=== PATIENT | female | born 1985 | race Caucasian/White ===

== ENCOUNTER 2018-01-06 23:45 | Emergency (ER) | payer MEDICAID, OTHER ==
[~2018-01-06] VITALS: Ht 154.9 cm; Wt 90.7 kg
[~2018-01-06 23:45] MED LIST: HYDR25TA4 PO; LISI40TA4 PO; NOR10 PO
[2018-01-06 23:53] VITALS: BP_SYST 184
[2018-01-07] MEDS ORDERED: KETOROLAC TROMETHAMINE 60 MG/2 ML VIAL IM ONE
[2018-01-07 00:55] VITALS: BP_SYST 179
[2018-01-07 00:55] LABS: BILIRUBIN,URINE NEGATIVE (NEGATIVE); BLOOD, URINE 3+ (NEGATIVE); CLARITY/URINE HAZY (CLEAR); COLOR,URINE YELLOW (YELLOW); GLUCOSE,URINE NEGATIVE (NEGATIVE); KETONES,URINE TRACE (NEGATIVE); LEUKOCYTE ESTERASE ,URINE NEGATIVE (NEGATIVE); NITRITE, URINE NEGATIVE (NEGATIVE); PH,URINE 5.5 (5.0-8.0); PROTEIN URINE 1+ (NEGATIVE); UROBILINOGEN,URINE 0.2 (0.2-1.0)
[2018-01-07 01:03] LABS: BACTERIA,URINE RARE /HPF (None Seen); RBC,URINE >100 /HPF (0-3)
== END 2018-01-07 00:55 | disposition home or self-care (01) ==
LOC: SED 23:45
DX: N20.0 Calculus of kidney (principal); I10 Essential (primary) hypertension; Z87.442 Personal history of urinary calculi
CPT/HCPCS: 81000; 81025; 96372; 99283; J1885

== ENCOUNTER 2023-06-04 16:39 | Emergency (ER) | payer BC ==
[~2023-06-04] VITALS: Ht 157.5 cm; Wt 81.6 kg
[~2023-06-04 16:39] MED LIST changes: +IBUP-1969 PO; +LISI40TA13 PO; -LISI40TA4 PO; +ONDA-8 TL; +OXYC-128 PO
[2023-06-04 16:45] VITALS: BP_SYST 195; PULSE 103; RESP 18; TEMP 98.3; O2SAT 98
--- NOTE | 2023-06-04 17:10 | NUR ---
Pt brought by self, A&Ox4, pt presents to ER with middle back pain, increasing with inspiration, O2 98%, skin pink and warm, cap refill <3, VSS
--- NOTE | 2023-06-04 17:51 | NUR ---
DR WEIR OUT TO TRIAGE ROOM FOR EVALUATION
[2023-06-04] MEDS ORDERED: KETOROLAC TROMETHAMINE 30 MG VIAL IVP ONE (18:00)
--- NOTE | 2023-06-04 18:00 | NUR ---
Patient to ER bed 07 to gown for evaluation. Side rails up. Report given to SELENA TOBIAS
[2023-06-04 18:23] LABS: BASOPHILS # (AUTO) 0.1 K/uL (0.0-0.2); BASOPHILS % (AUTO) 0.6 % (0.0-2.0); EOSINOPHILS # (AUTO) 0.2 K/uL (0.0-0.4); EOSINOPHILS % (AUTO) 1.2 % (0.0-4.0); HEMATOCRIT 35.4 % (36-48); HEMOGLOBIN 11.3 g/dL (12.0-16.0); LYMPHOCYTES # (AUTO) 1.7 K/uL (1.0-5.5); LYMPHOCYTES % (AUTO) 13.1 % (20.5-51.5); MEAN CORPUSCULAR HEMOGLOBIN 27 pg (27-31); MEAN CORPUSCULAR HGB CONC 32 % (32-36); MEAN CORPUSCULAR VOLUME 84 fL (79.0-98.0); MONOCYTES # (AUTO) 0.7 K/uL (0.0-1.0); MONOCYTES % (AUTO) 5.6 % (1.7-9.3); NEUTROPHILS # (AUTO) 10.3 K/uL (1.8-7.7); NEUTROPHILS % (AUTO) 79.5 % (40.0-70.0); PLATELET COUNT (AUTO) 339 K/uL (130-430); RED BLOOD CELL COUNT(AUTO) 4.21 MIL/uL (4.2-6.2); RED CELL DISTRIBUTION WIDTH 16.7 % (9.0-15.0); WHITE BLOOD COUNT (AUTO) 12.9 K/uL (4.8-10.8)
[2023-06-04 18:30] VITALS: TEMP 97.8
[2023-06-04 18:34] LABS: ANION GAP 9 (5-15); CALCIUM 8.6 mg/dL (8.4-11.0); CHLORIDE 102 mmol/L (98-107); CREATININE 0.78 mg/dL (0.55-1.30); GFR AFRICAN AMERICAN 106 mL/min (>90); GLUCOSE 95 mg/dL (74-106); UREA NITROGEN, BLOOD 14 mg/dL (8-21)
[2023-06-04 18:40] LABS: ALANINE AMINOTRANSFERASE 20 U/L (12-78); ALBUMIN 3.8 g/dL (3.4-4.8); ASPARTATE AMINOTRANSFERASE 10 U/L (10-37); TOTAL BILIRUBIN 0.5 mg/dL (0.0-1.0)
[2023-06-04] MEDS ORDERED: DIPHENHYDRAMINE INJ 50 MG/ML VIAL IVP ONE (19:15)
--- NOTE | 2023-06-04 19:20 | NUR ---
RECEIVED VERBAL REPORT FROM OUTGOING NURSE SELENA TOBIAS. RECEIVED PT AWAKE AND ALERT, NO S/S OF DISTRESS NOTED. CONTINUED SAFETY PRECAUTIONS.
--- NOTE | 2023-06-04 21:04 | NUR ---
DR. WEIR IN ROOM DISCUSSING RESULTS
[2023-06-04] MEDS ORDERED: DICL75TA5 PO (21:16)
[2023-06-04 21:25] VITALS: BP_SYST 161; PULSE 80; RESP 18; O2SAT 97
--- NOTE | 2023-06-04 21:25 | NUR ---
Patient given written and verbal discharge instructions and verbalizes understanding. ER DR WEIR discussed with patient the results and treatment provided. Patient in stable condition. ID arm band removed. IV catheter removed intact and dressing applied, no active bleeding. Rx of VOLTAREN given. Patient educated on pain management and to follow up with PMD. Pain Scale 2/10. Opportunity for questions provided and answered. Medication side effect fact sheet provided.
== END 2023-06-04 21:25 | disposition home or self-care (01) ==
LOC: SED 16:39
DX: R09.1 Pleurisy (principal); R07.81 Pleurodynia; M54.6 Pain in thoracic spine; R06.02 Shortness of breath; I10 Essential (primary) hypertension; Z79.899 Other long term (current) drug therapy; Z20.822 Contact with and (suspected) exposure to COVID-19
CPT/HCPCS: 99285; 96374; 71275; 71045; 96375; 87426; 80053; 84703; 83880; 85025; 85379; 84484; 36415; 93005; 87804 ×2; 76376; J1200; J1885; Q9967

== ENCOUNTER 2023-12-09 14:27 | Emergency (ER) | payer BC ==
[~2023-12-09] VITALS: Ht 160 cm; Wt 90.7 kg
[~2023-12-09 14:27] MED LIST changes: +DICL75TA5 PO
[2023-12-09 14:41] VITALS: BP_SYST 207; PULSE 97; RESP 18; TEMP 97.3; O2SAT 99
[2023-12-09 15:19] LABS: BILIRUBIN,URINE NEGATIVE (NEGATIVE); BLOOD, URINE NEGATIVE (NEGATIVE); CLARITY/URINE CLEAR (CLEAR); COLOR,URINE YELLOW (YELLOW); GLUCOSE,URINE NEGATIVE (NEGATIVE); KETONES,URINE NEGATIVE (NEGATIVE); LEUKOCYTE ESTERASE ,URINE NEGATIVE (NEGATIVE); NITRITE, URINE NEGATIVE (NEGATIVE); PROTEIN URINE NEGATIVE (NEGATIVE); UROBILINOGEN,URINE 0.2 (0.2-1.0)
[2023-12-09 15:31] LABS: BASOPHILS # (AUTO) 0.1 K/uL (0.0-0.2); BASOPHILS % (AUTO) 0.8 % (0.0-2.0); EOSINOPHILS # (AUTO) 0.1 K/uL (0.0-0.4); EOSINOPHILS % (AUTO) 1.4 % (0.0-4.0); HEMATOCRIT 34.7 % (36-48); HEMOGLOBIN 11.5 g/dL (12.0-16.0); MEAN CORPUSCULAR HEMOGLOBIN 26 pg (27-31); MEAN CORPUSCULAR HGB CONC 33 % (32-36); MEAN CORPUSCULAR VOLUME 80 fL (79.0-98.0); MONOCYTES # (AUTO) 0.6 K/uL (0.0-1.0); MONOCYTES % (AUTO) 5.2 % (1.7-9.3); NEUTROPHILS # (AUTO) 7.9 K/uL (1.8-7.7); NEUTROPHILS % (AUTO) 73.6 % (40.0-70.0); PLATELET COUNT (AUTO) 451 K/uL (130-430); RED BLOOD CELL COUNT(AUTO) 4.35 MIL/uL (4.2-6.2); RED CELL DISTRIBUTION WIDTH 15.9 % (9.0-15.0); WHITE BLOOD COUNT (AUTO) 10.7 K/uL (4.8-10.8)
[2023-12-09 15:55] LABS: CALCIUM 9.2 mg/dL (8.4-11.0); CREATININE 0.92 mg/dL (0.55-1.30); POTASSIUM 3.8 mmol/L (3.5-5.1)
[2023-12-09 15:59] LABS: ALBUMIN 3.8 g/dL (3.4-4.8); BILIRUBIN,DIRECT 0.1 mg/dL (0.0-0.3); TOTAL BILIRUBIN 0.3 mg/dL (0.0-1.0); TOTAL PROTEIN, SERUM 7.1 g/dL (6.4-8.3)
[2023-12-09 19:40] VITALS: BP_SYST 207
[2023-12-09] MEDS ORDERED: LOSARTAN POTASSIUM 50 MG TABLET (COZAAR) PO ONE (19:45)
[2023-12-09] MEDS ORDERED: LOSARTAN POTASSIUM 50 MG TABLET (COZAAR) ONE (19:49)
[2023-12-09] MEDS ORDERED: cloNIDine HCL 0.1 MG TABLET PO ONE (21:00)
[2023-12-09 21:12] VITALS: PULSE 87; RESP 16; TEMP 97.2; O2SAT 98
== END 2023-12-09 21:15 | disposition home or self-care (01) ==
LOC: SED 14:27
DX: R10.9 Unspecified abdominal pain (principal); I10 Essential (primary) hypertension; Z87.442 Personal history of urinary calculi; Z79.899 Other long term (current) drug therapy
CPT/HCPCS: 36415; 76376; 80048; 80076; 81001; 81003; 81025; 83690; 85025; 99284